=== PATIENT | female | born 1975 | race Caucasian/White ===

== ENCOUNTER → 2016-12-28 | Outpatient (CLI) | payer BC | END | disposition home or self-care (01) | LOC: C.PAPS 14:58 | PROVIDERS: ATTEND Obstetrics & Gynecology | DX: Z01.419 Encounter for gynecological examination (general) (routine) without abnormal findings (principal); R92.2 Inconclusive mammogram ==

== ENCOUNTER → 2017-03-05 | Outpatient (CLI) | payer BC ==
--- NOTE | 2017-03-08 14:29 | MAMMOGRAPHY REPORT ---
BILATERAL FIRST EVER DIGITAL SCREENING MAMMOGRAM TOMOSYNTHESIS WITH CAD: 03/05/2017 CLINICAL HISTORY: Baseline examination. TECHNIQUE: Breast tomosynthesis in addition to standard 2D mammography was performed. Current study was also evaluated with a Computer Aided Detection (CAD) system. COMPARISON: No prior exams were available for comparison. BREAST COMPOSITION: The tissue of both breasts is heterogeneously dense, which may obscure small mas ses. FINDINGS: There is a 2.9 cm asymmetry seen within the right superior breast on the MLO view only, wh ich likely represents normal overlapping fibroglandular tissue although spot compression tomosynthesi s views and possible breast ultrasound are recommended for further evaluation. There is a small clus ter calcifications in the left upper outer quadrant anteriorly, for which spot magnification views ar e recommended. There is also an obscured oval 7 mm mass within the left upper outer quadrant posteri tyron, for which ultrasound and possible additional views are recommended. The remainder of both breasts demonstrate no suspicious masses, calcifications, or areas of java solutions architect ural distortion noted. A few other scattered bilateral benign-appearing calcifications are evident. IMPRESSION: ACR BI-RADS CATEGORY 0: INCOMPLETE EVALUATION: NEED ADDITIONAL IMAGING EVALUATION Right breast asymmetry, left breast calcifications, and left breast mass, for which additional imagin g evaluation is recommended. The patient will be called to schedule an appointment. Approximately 10% of breast cancers are not detected with mammography. A negative mammographic report should not delay biopsy if a clinically suggestive mass is present. Aga Mendoza M.D. ah/:03/06/2017 11:17:27 Assembly And Packing Supervisor: Eliza PEREZ)(Pedro), [facility] letter sent: Addl Imaging 0 BI-RADS Code: ACR BI-RADS Category 0: Incomplete Evaluation: Need Additional Imaging Evaluation
== END | disposition home or self-care (01) ==
LOC: C.MAMM 13:48
PROVIDERS: ATTEND Obstetrics & Gynecology
DX: Z12.31 Encounter for screening mammogram for malignant neoplasm of breast (principal); N63 Unspecified lump in breast; R92.1 Mammographic calcification found on diagnostic imaging of breast

== ENCOUNTER → 2017-03-17 | Outpatient (CLI) | payer BC ==
--- NOTE | 2017-03-17 13:53 | MAMMOGRAPHY REPORT ---
BILATERAL DIGITAL DIAGNOSTIC MAMMOGRAM TOMOSYNTHESIS AND TARGETED LEFT ULTRASOUND: 03/17/2017 CLINICAL HISTORY: 41-year-old woman called back from baseline screening mammogram for an asymmetry in the far superior right breast on the MLO view, grouped microcalcifications in the left upper outer a nterior breast, and a mass in the approximate 3:00 far posterior left breast measuring 6.7 x 4.7 x 4. 6 mm. TECHNIQUE: Spot compression MLO 2-D and tomosynthesis images of the right superior breast; spot magni fication left CC and ML views were obtained. COMPARISON: Comparison is made to exam dated: 03/05/2017 mammogram - [facility]. BREAST COMPOSITION: The tissue of both breasts is heterogeneously dense, which may obscure small mas ses. FINDINGS: The spot compression views of the right superior breast demonstrate effacement of the asymm etry in the far superior aspect of the breast, only seen on the MLO view, which has the appearance of normal fibroglandular tissue. This could represent accessory breast tissue in the axillary tail. T here are also clustered morphologically normal lymph nodes projecting over the pectoralis muscle. No suspicious mass or focal area of architectural distortion. Further evaluation with ultrasound was p erformed. Spot magnification views of the left breast demonstrate a small, 1.9 mm grouping of punctate microcal cifications in the upper outer anterior breast. These could represent benign fibrocystic changes, bu t given that no prior mammograms are available to document stability, a short interval follow-up diag nostic mammogram including spot magnification views is recommended in 6 months. Targeted ultrasound was performed in the right axillary tail, and lateral left breast. In the right axillary tail, normal fibroglandular tissue and numerous scattered cysts are identified. No suspicio us solid or cystic mass is seen. In the left lateral breast, numerous cysts, cyst clusters and compl icated cyst with internal nonvascular septations are identified. In the 4:00 left breast, 2 cm from the nipple, there is a cyst with internal septations measuring 6.9 x 3.7 x 13.3 mm. A hypoechoic par allel lobulated and circumscribed mass is identified in the 3:00 left breast, 4 cm from the nipple, m easuring 5.6 x 2.9 x 5.1 mm. A large cyst with numerous internal nonvascular septations is identifie d in the 1:00 periareolar left breast, measuring 10.4 x 5.4 x 14.9 mm. Another circumscribed hypoech oic solid versus cystic mass is seen in the 2:00 left breast, 2 cm from the nipple, 2 cm deep to the dermis, measuring 5.9 x 3.4 x 7.8 mm. Given the far posterior/deep location within the breast, this is thought to correlate with the mammographic mass and has a benign sonographic appearance. However, as it does not meet the criteria for simple cyst, a short interval follow-up targeted ultrasound is recommended. At the time of follow-up, repeat assessment should also be performed of a possible comp licated cyst in the 3:00 left breast, 4 cm from the nipple, and cysts with internal septations in the 4:00 and 1:00 axis of the left breast as well. IMPRESSION: ACR-BI-RADS CATEGORY 3: PROBABLY BENIGN, TARGETED ULTRASOUND ACR-BI-RADS CATEGORY 3: PRO BABLY BENIGN 1. The asymmetry in the superior right breast on the MLO view has the appearance of normal overlappi ng tissue, and no suspicious sonographic correlate was identified. This most likely represents acces ab breast tissue in the axillary tail and is considered benign. 2. There is a small, 1.9 mm grouping of punctate microcalcifications in the left upper outer anterio r breast that is also benign in appearance, may represent fibrocystic change. Given that no prior ma mmograms are available to document stability, a short interval follow-up diagnostic mammogram and rep eat spot magnification views is recommended in 6 months. 3. At the time of follow-up in the left breast, repeat assessment should also be made in the far pos terior slightly lateral left breast for the partially circumscribed subcentimeter mass, thought to atwood ve a benign sonographic correlate in the 2:00 axis. Repeat targeted ultrasound should also be perfor med in the left 1:00, 2:00 on 3:00 and 4:00 axes, as detailed above. These results and recommendations were discussed with the patient at the time of the exam. She fabianaat jamie scheduled a follow-up appointment prior to leaving our department. Approximately 10% of breast cancers are not detected with mammography. A negative mammographic report should not delay biopsy if a clinically suggestive mass is present. Kimberli Betancourt M.D. ay/:03/17/2017 13:38:42 Retail Sales Teammate: Naomie Danielle [facility] letter sent: Follow Up Recommended 3 BI-RADS Code: ACR-BI-RADS Category 3: Probably Benign Ultrasound BI-RADS: ACR-BI-RADS Category 3: Pr obably Benign
== END | disposition home or self-care (01) ==
LOC: C.MAMM 09:58
PROVIDERS: ATTEND Obstetrics & Gynecology
DX: Z12.31 Encounter for screening mammogram for malignant neoplasm of breast (principal); N64.89 Other specified disorders of breast; R92.0 Mammographic microcalcification found on diagnostic imaging of breast

== ENCOUNTER → 2017-09-17 | Outpatient (CLI) | payer BC ==
--- NOTE | 2017-09-17 13:59 | MAMMOGRAPHY REPORT ---
UNILATERAL LEFT DIGITAL DIAGNOSTIC MAMMOGRAM TOMOSYNTHESIS WITH CAD AND TARGETED LEFT ULTRASOUND: 08/30 CLINICAL HISTORY: Six-month follow-up of left breast masses and calcifications. TECHNIQUE: Breast tomosynthesis in addition to standard 2D mammography was performed. Current study was also evaluated with a Computer Aided Detection (CAD) system. Left CC and MLO 2-D and tomosynthes is images and spot magnification left CC and ML views were obtained. COMPARISON: Comparison is made to exams dated: 03/17/2017 mammogram, 03/17/2017 ultrasound, and 03/05/20 17 mammogram - [facility]. BREAST COMPOSITION: The tissue of the left breast is heterogeneously dense, which may obscure small masses. FINDINGS: Again noted is a small 2 mm cluster of faint punctate calcifications in the left upper out er anterior breast. The calcifications are stable on spot magnification views compared to the February 28 exam and are probably benign. The previously described round circumscribed 6 mm mass within the left 3:00 posterior breast is also stable. The remainder of the left breast is stable compared to pr ior exams, without suspicious masses, calcifications, or areas of architectural distortion noted. An asymmetry within the left lateral breast effaces on the spot magnification views and likely represen ts normal fibroglandular tissue. Targeted ultrasound was performed of the previously seen left breast masses for which follow-up was r ecommended. In the left breast at 4:00, 2 cm from the nipple, again noted is an oval anechoic circum scribed mass with a few thin internal septations, measuring 1.3 cm in greatest extent. The mass is n ot significantly changed and is consistent with a cyst. In the left breast at 3:00, 4 cm from the ni pple, there is an oval circumscribed hypoechoic 6 x 3 x 5 mm mass, which is also stable compared to February 2017 exam and is probably benign and may represent a complicated cyst versus a solid mass suc h as a fibroadenoma. In the left breast at 1:00 periareolar region, there is an oval circumscribed a nechoic mass with a few thin internal septations, measuring 1.5 x 0.6 x 0.9 cm, stable compared to February 2017 exam and consistent with a cyst. A small oval anechoic benign simple cyst measuring 4 x 6 mm is seen within the left breast at 3:00, 5 cm from the nipple. The oval hypoechoic circumscribed mass seen within the left 2:00 breast, 2 cm from the nipple appears decreased in size compared to February 2017 exam, currently measuring 5 x 4 mm, previously measuring 8 x 6 mm; given the interval dec rease in size, the mass is considered benign and likely represents a cyst. Another anechoic benign s imple cyst measuring 3 mm is seen within the left 2:00 breast, 2 cm from the nipple. The cyst in the left 3:00 breast, 5 cm from the nipple, likely corresponds with the stable circumscribed mammographi c mass. IMPRESSION: ACR-BI-RADS CATEGORY 3: PROBABLY BENIGN, TARGETED ULTRASOUND ACR-BI-RADS CATEGORY 3: PRO BABLY BENIGN 1. Small cluster of punctate benign appearing calcifications in the left upper outer quadrant is sta ble compared to the February 2017 exam and is probably benign. 2. Multiple cysts within the left 1 to 4:00 breast are not significantly changed and are consistent with benign cysts. A hypoechoic 6 mm mass in the left 3:00 breast, 4 cm from the nipple, is probably benign and may represent a complicated cyst versus a fibroadenoma. 3. Recommend bilateral diagnostic tomosynthesis mammograms and targeted left breast ultrasound in 6 months, to reevaluate the left breast calcifications and left 3:00 breast mass, and for routine mammo graphy of the right breast. The patient has been verbally notified of the results. Approximately 10% of breast cancers are not detected with mammography. A negative mammographic report should not delay biopsy if a clinically suggestive mass is present. Aga Mendoza M.D. ah/:09/17/2017 09:35:43 Counselor Aide: Zachary DOBBINS(Harika)(M), [facility] letter sent: Follow Up Recommended 3 BI-RADS Code: ACR-BI-RADS Category 3: Probably Benign Ultrasound BI-RADS: ACR-BI-RADS Category 3: Pr obably Benign
== END | disposition home or self-care (01) ==
LOC: C.MAMM 08:38
PROVIDERS: ATTEND Obstetrics & Gynecology
DX: R92.1 Mammographic calcification found on diagnostic imaging of breast (principal); N60.02 Solitary cyst of left breast; N63.20 Unspecified lump in the left breast, unspecified quadrant

== ENCOUNTER → 2018-03-18 | Outpatient (CLI) | payer BC ==
--- NOTE | 2018-03-21 07:43 | MAMMOGRAPHY REPORT ---
BILATERAL DIGITAL DIAGNOSTIC MAMMOGRAM TOMOSYNTHESIS WITH CAD AND TARGETED LEFT ULTRASOUND: 03/18/2018 CLINICAL HISTORY: Short interval follow-up of left breast mass and left breast calcifications. Due fo r routine mammography of the right breast. TECHNIQUE: The study was acquired using full field digital technology and interpreted from soft copy. Breast tomosynthesis in addition to standard 2D mammography was performed. Current study was also ev aluated with a Computer Aided Detection (CAD) system. Bilateral CC and MLO 2D and tomosynthesis imag es and spot magnification left CC and ML views were obtained. COMPARISON: Comparison is made to exams dated: 09/17/2017 mammogram, 03/17/2017 mammogram, 03/05/2017 ma mmogram, 09/17/2017 ultrasound, and 03/17/2017 ultrasound - [facility]. BREAST COMPOSITION: The tissue of both breasts is heterogeneously dense, which may obscure small mass es. FINDINGS: Again noted is a small 2 mm cluster of faint punctate calcifications in the left upper outer anterior breast. The calcifications are stable on spot magnification views dating back to at least the February 2017 exam and are probably benign given the morphology and stability. The remainder of both breasts are stable mammographically compared to prior exams, without suspicious masses, calcifications, or ar eas of architectural distortion noted. Other scattered bilateral benign-appearing calcifications are not significantly changed. Left lateral breast asymmetry is stable. Targeted ultrasound was performed of the left breast in the region of the mammographic mass for which follow-up is recommended. In the left 3:00 breast, approximately 4 cm from the nipple, again noted is an oval circumscribed hypoechoic 6 x 4 x 5 mm mass. The mass is stable dating back to the March 18 exam and is probably benign and may represent a complicated cyst or fibroadenoma. A few cysts wer e again noted during the exam, including a cyst with thin internal septations measuring 10 x 7 mm in the left 4:00 breast, 2 cm from the nipple which appears decreased compared to the February 2017 exam and is benign. Another cyst with thin internal septations measuring 14 x 6 x 8 mm in the left 1:00 carlyn areolar breast is stable dating back to the February 2017 exam and is benign. IMPRESSION: ACR-BI-RADS CATEGORY 3: PROBABLY BENIGN, ULTRASOUND ACR-BI-RADS CATEGORY 3: PROBABLY ROBERT GN Small cluster of punctate benign-appearing calcifications in the left upper outer anterior breast is stable dating back to the February 2017 exam and is probably benign. Hypoechoic circumscribed 6 mm mass in the left 3:00 breast is stable dating back to the February 2017 exam and is probably benign. Recommen d bilateral diagnostic tomosynthesis mammograms and targeted left breast ultrasound in 12 months to r eevaluate the left breast mass and calcifications and for routine mammography of the right breast. (0 03/18/2019) The patient has been verbally notified of the results. Some breast cancers are not detected with mammography. A negative mammographic report should not abby y biopsy if a clinically suggestive mass is present. Aga Mendoza M.D. ah/:03/18/2018 11:23:08 Ekg/Ecg Technician: RT Lianna(R)(M), [facility] letter sent: Follow Up Recommended 3 OVERALL STUDY BIRADS: 3 Probably benign
== END | disposition home or self-care (01) ==
LOC: C.MAMM 08:22
PROVIDERS: ATTEND Obstetrics & Gynecology
DX: Z09 Encounter for follow-up examination after completed treatment for conditions other than malignant neoplasm (principal); R92.1 Mammographic calcification found on diagnostic imaging of breast; N63.20 Unspecified lump in the left breast, unspecified quadrant